=== PATIENT | female | born 1960 | race Caucasian/White ===

== ENCOUNTER → 2017-08-27 | Outpatient (CLI) | payer BC ==
[~2017-08-27] MED LIST: PRED1SUS3; SYN112 PO
--- NOTE | 2017-08-27 15:36 | MAMMOGRAPHY REPORT ---
BILATERAL DIGITAL SCREENING MAMMOGRAM TOMOSYNTHESIS WITH CAD: 08/27/2017 CLINICAL HISTORY: Routine screening. Patient has no complaints. TECHNIQUE: Breast tomosynthesis in addition to standard 2D mammography was performed. Current study was also evaluated with a Computer Aided Detection (CAD) system. COMPARISON: Comparison is made to exams dated: 08/26/2016 mammogram, 08/22/2015 mammogram, 08/30/2014 m ammogram, 08/17/2014 mammogram - [facility], 07/19/2008, and 07/16/2007. BREAST COMPOSITION: There are scattered areas of fibroglandular density in both breasts. FINDINGS: There is a new circumscribed 10 mm mass within the right 12:00 breast, best seen on the to mosynthesis images, for which ultrasound is recommended for further evaluation. This may represent a cyst. The remainder of both breasts are stable compared to prior exams, without suspicious masses, calcific ations, or areas of architectural distortion noted. A biopsy marker clip is again noted in the left medial breast. IMPRESSION: ACR BI-RADS CATEGORY 0: INCOMPLETE EVALUATION: NEED ADDITIONAL IMAGING EVALUATION Right breast mass, for which additional imaging evaluation is recommended. The patient will be griffith d to schedule an appointment. Approximately 10% of breast cancers are not detected with mammography. A negative mammographic report should not delay biopsy if a clinically suggestive mass is present. Roxana Man M.D. /:08/27/2017 12:39:14 Boat Rigger: Rose LIPSCOMB)([place]), [facility] letter sent: Addl Imaging 0 BI-RADS Code: ACR BI-RADS Category 0: Incomplete Evaluation: Need Additional Imaging Evaluation
== END | disposition home or self-care (01) ==
LOC: C.MAMM 08:18
PROVIDERS: ATTEND Family Medicine
DX: Z12.31 Encounter for screening mammogram for malignant neoplasm of breast (principal); N63 Unspecified lump in breast

== ENCOUNTER → 2017-09-04 | Outpatient (CLI) | payer BC ==
--- NOTE | 2017-09-04 15:46 | MAMMOGRAPHY REPORT ---
ULTRASOUND OF RIGHT BREAST: 09/04/2017 CLINICAL HISTORY: Callback from screening mammogram for right breast mass. COMPARISON: Comparison is made to exams dated: 08/26/2016 mammogram, 08/22/2015 mammogram, 03/29/2015 m ammogram, 09/21/2014 mammogram, 08/30/2014 mammogram, and 08/17/2014 mammogram - . TECHNIQUE: Real-time targeted ultrasound of the right breast was performed. FINDINGS: Real-time, high-resolution targeted ultrasound was performed of the region of the circumsc ribed mammographic mass seen on the recent screening mammogram in the right 12:00 breast. In the rig ht 12:00 breast, 3-4 cm from the nipple, there is a bilobed circumscribed anechoic mass which measure s 9 x 3 x 7 mm. This corresponds with the circumscribed benign-appearing mammographic mass and is co nsistent with a benign cyst. No suspicious solid masses are evident. IMPRESSION: ACR BI-RADS CATEGORY 2: BENIGN The mammographic mass corresponds with a benign 9 mm cyst in the right 12:00 breast on ultrasound. T here is no sonographic evidence of malignancy. A 1 year screening mammogram is recommended. The patient was verbally notified of the results. Roxana Man M.D. /:09/04/2017 08:35:35 Boom Stick Man: Roxana Man MD, letter sent: Normal 1/2 BI-RADS Code: ACR BI-RADS Category 2: Benign
== END | disposition home or self-care (01) ==
LOC: C.MAMM 08:06
PROVIDERS: ATTEND Family Medicine
DX: N63.10 Unspecified lump in the right breast, unspecified quadrant (principal)